=== PATIENT | female | born 1990 | race Caucasian/White ===

== ENCOUNTER 2021-08-03 10:53 | Observation (INO) | payer MEDICAID ==
[~2021-08-03] VITALS: Ht 149.9 cm; Wt 104.3 kg
[2021-08-03 11:40] VITALS: BP 132/73
[2021-08-14] MEDS ORDERED: METF500S6 PO (17:57)
[2021-08-14] MEDS ORDERED: LEVO200C3 PO (17:57)
[2021-08-14] MEDS ORDERED: PRETAB PO (17:57)
== END 2021-08-03 12:30 | disposition home or self-care (01) ==
LOC: MLD 10:53
PROVIDERS: ADMIT Obstetrics & Gynecology; ATTEND Obstetrics & Gynecology
DX: O46.93 Antepartum hemorrhage, unspecified, third trimester (principal); Z3A.37 37 weeks gestation of pregnancy
CPT/HCPCS: 59025; 81000; G0378